=== PATIENT | female | born 1945 | race Caucasian/White ===

== ENCOUNTER 2020-07-17 18:56 | Emergency (ER) | payer OTHER, MEDICARE ==
[~2020-07-17] VITALS: Ht 152.4 cm; Wt 59.0 kg
[~2020-07-17 18:56] MED LIST: CALICUM 500+D1 EACH PO; MECLIZINE HCL25 MG PO; NORCO 5-325 TA1 EACH PO; SYNTHROID; SYNTHROID25 MCG PO; ZOLOFT; ZOLOFT25 MG PO
[2020-07-17] MEDS ORDERED: XANAX 0.5 MG0.5 M1 PO (19:03)
[2020-07-17] MEDS ORDERED: PERCOCET 5-3251 EACH PO (19:38)
[2020-07-17 20:20] VITALS: BP 139/61
== END 2020-07-17 20:27 | disposition home or self-care (01) ==
LOC: ER 18:56
DX: S42.251A Displaced fracture of greater tuberosity of right humerus, initial encounter for closed fracture (principal); E03.9 Hypothyroidism, unspecified; Z90.711 Acquired absence of uterus with remaining cervical stump; Z90.49 Acquired absence of other specified parts of digestive tract; Z98.890 Other specified postprocedural states; Z79.899 Other long term (current) drug therapy; W01.0XXA Fall on same level from slipping, tripping and stumbling without subsequent striking against object, initial encounter; Y93.01 Activity, walking, marching and hiking; Y92.488 Other paved roadways as the place of occurrence of the external cause; Y99.8 Other external cause status